=== PATIENT | female | born 1980 | race American Indian/Alaskan Native ===

== ENCOUNTER 2016-11-25 09:54 | Emergency (ER) | payer SELFPAY ==
[2016-11-25] MEDS ORDERED: MORPHINE IM ONE (13:38)
[2016-11-25] MEDS ORDERED: ZOFRAN ODT PO ONE (13:38)
[2016-11-25] MEDS ORDERED: CLEOCIN IM ONE (13:38)
[2016-11-25] MEDS ORDERED: MOTRIN PO ONE (13:38)
--- NOTE | 2016-11-25 14:06 | Emergency Department Report ---
ED ENT HPI - General Chief complaint: Dental/Oral Stated complaint: ABCSESS/SWOLLEN JAW/THROAT Time Seen by Provider: 11/25/16 13:23 Source: patient Mode of arrival: Ambulatory Limitations: No Limitations - History of Present Illness Initial comments: Pt states 5-6 months ago, her filling broke off. PT stats since that time, she has gotten intermittent toothaches. PT states she has had a toothache x 2 days. PT states that she woke up yesterday with mild facial swelling. PT states she took multiple NSAIDs (motrin, aleve, asa) but no improvement. PT states she woke up this morning and her swelling was worse. PT also c/o draining blister's to her gum. MD complaint: tooth pain Onset/Timin -: Gradual, days(s) 1 - pain Severity: severe Severity scale (0 -10): 9 Quality: stabbing Consistency: constant Improves with: none Worsens with: eating, movement, other (palpation) Context- Dental: poor dental care Associated Symptoms: fever (subjective), gum swelling. denies: sore throat, discharge from ear - Related Data Previous Rx's Medication Instructions Recorded Last Taken Type Acetaminophen/Codeine [Tylenol #3] 1 tab PO Q6H PRN #12 tab 11/25/16 Unknown Rx Chlorhexidine Mouthwash [Peridex] 15 ml MM BID 7 Days 11/25/16 Unknown Rx Clindamycin [Clindamycin CAP] 300 mg PO Q8H #30 cap 11/25/16 Unknown Rx Ibuprofen [Motrin] 600 mg PO Q8H PRN #15 tablet 11/25/16 Unknown Rx Allergies Allergy/AdvReac Type Severity Reaction Status Date / Time No Known Allergies Allergy Unverified 11/25/16 10:40 ED Dental HPI - General Chief complaint: Dental/Oral Stated complaint: ABCSESS/SWOLLEN JAW/THROAT Time Seen by Provider: 11/25/16 13:23 Source: patient Mode of arrival: Ambulatory Limitations: No Limitations - Related Data Previous Rx's Medication Instructions Recorded Last Taken Type Acetaminophen/Codeine [Tylenol #3] 1 tab PO Q6H PRN #12 tab 11/25/16 Unknown Rx Chlorhexidine Mouthwash [Peridex] 15 ml MM BID 7 Days 11/25/16 Unknown Rx Clindamycin [Clindamycin CAP] 300 mg PO Q8H #30 cap 11/25/16 Unknown Rx Ibuprofen [Motrin] 600 mg PO Q8H PRN #15 tablet 11/25/16 Unknown Rx Allergies Allergy/AdvReac Type Severity Reaction Status Date / Time No Known Allergies Allergy Unverified 11/25/16 10:40 ED Review of Systems ROS: Stated complaint: ABCSESS/SWOLLEN JAW/THROAT Other details as noted in HPI Comment: All other systems reviewed and negative Constitutional: fever. denies: chills Gastrointestinal: denies: abdominal pain, nausea, vomiting Skin: denies: change in color ED Past Medical Hx - Past Medical History Previous Medical History?: No - Surgical History Past Surgical History?: Yes Additional Surgical History: C section x3. hysterectomy - Social History Smoking Status: Current Every Day Smoker - Medications Home Medications: Home Medications Medication Instructions Recorded Confirmed Last Taken Type Acetaminophen/Codeine [Tylenol #3] 1 tab PO Q6H PRN #12 tab 11/25/16 Unknown Rx Chlorhexidine Mouthwash [Peridex] 15 ml MM BID 7 Days 11/25/16 Unknown Rx Clindamycin [Clindamycin CAP] 300 mg PO Q8H #30 cap 11/25/16 Unknown Rx Ibuprofen [Motrin] 600 mg PO Q8H PRN #15 tablet 11/25/16 Unknown Rx ED Physical Exam - General Limitations: No Limitations General appearance: alert, in no apparent distress - Head Head exam: Present: atraumatic, normocephalic, other (swelling to left mandible) - Eye Eye exam: Present: normal appearance, PERRL, EOMI. Absent: conjunctival injection - ENT ENT exam: Present: normal orophraynx, TM's normal bilaterally, normal external ear exam - Expanded ENT Exam Expanded Teeth exam: Present: dental caries, dental tenderness # (18), gingival enlargement, other (small draining apical abscess to tooth 18. no signs of [place]) Throat exam: Positive: normal inspection. Negative: tonsillar erythema - Neck Neck exam: Present: normal inspection, full ROM. Absent: tenderness, lymphadenopathy - Respiratory Respiratory exam: Present: normal lung sounds bilaterally. Absent: respiratory distress, wheezes, rales, rhonchi - Cardiovascular Cardiovascular Exam: Present: regular rate, normal rhythm, normal heart sounds - Extremities Exam Extremities exam: Present: normal inspection, full ROM - Back Exam Back exam: Present: normal inspection, full ROM. Absent: tenderness - Neurological Exam Neurological exam: Present: alert, oriented X3 - Psychiatric Psychiatric exam: Present: normal affect, normal mood - Skin Skin exam: Present: warm, dry, intact, normal color ED Course Vital Signs 11/25/16 10:38 Temperature 99.1 F Pulse Rate 87 Respiratory 16 Rate Blood Pressure 130/72 O2 Sat by Pulse 100 Oximetry - Reevaluation(s) Reevaluation #1: 11/25/16 14:07 pt aware of dx and plan of care. pt has no questions at this time - Pulse Oximetry Interpretation Digit-Finger Initial Pulse Oximetry Readin Actions Taken: none ED Medical Decision Making - Differential Diagnosis dental caries, toothache Critical Care Time: No Critical care attestation.: If time is entered above; I have spent that time in minutes in the direct care of this critically ill patient, excluding procedure time. ED Disposition Clinical Impression: Dental abscess Disposition: DC-01 TO HOME OR SELFCARE Is pt being admited?: No Does the pt Need Aspirin: No Condition: Stable Instructions: Dental Abscess (ED), Toothache (ED) Additional Instructions: No driving or alcohol after taking Tylenol #3 for pain finish all antibiotics follow up with dentist in the next 3-5 days return to ed if worsening swelling or concerns Prescriptions: Acetaminophen/Codeine [Tylenol #3] 1 tab PO Q6H PRN #12 tab PRN Reason: Pain , Severe (7-10) Chlorhexidine Mouthwash [Peridex] 15 ml MM BID 7 Days Clindamycin [Clindamycin CAP] 300 mg PO Q8H #30 cap Ibuprofen [Motrin] 600 mg PO Q8H PRN #15 tablet PRN Reason: Pain Referrals: PRIMARY CARE, [Primary Care Provider] - 3-5 Days BUD MOSLEY MD [Staff Physician] - 3-5 Days [facility] [Outside] - 3-5 Days [facility] [Outside] - 3-5 Days [facility] [Outside] - 3-5 Days Time of Disposition: 14:08
[2016-11-25 14:19] VITALS: BP 124/70
== END 2016-11-25 14:26 | disposition home or self-care (01) ==
LOC: ED 09:54
DX: K04.7 Periapical abscess without sinus (principal); F17.200 Nicotine dependence, unspecified, uncomplicated
CPT/HCPCS: 96372; 99282; J2270; Q0162

== ENCOUNTER 2017-05-21 15:01 | Emergency (ER) | payer SELFPAY ==
[2017-05-21 16:35] VITALS: BP 119/78
== END 2017-05-22 03:58 | disposition left against medical advice (07) ==
LOC: ED 15:01
DX: J02.9 Acute pharyngitis, unspecified (principal); Z53.21 Procedure and treatment not carried out due to patient leaving prior to being seen by health care provider
CPT/HCPCS: 87116; 87430

== ENCOUNTER 2017-09-09 12:07 | Emergency (ER) | payer SELFPAY ==
--- NOTE | 2017-09-09 13:34 | Emergency Department Report ---
Chief Complaint: Urogenital-Female Stated Complaint: PELVIC PAIN Time Seen by Provider: 09/09/17 13:29 - HPI History of Present Illness: 37-year-old female presents to the emergency department with complaint of some lower pelvic discomfort and some recent vaginal bleeding. The patient had heavy vaginal bleeding yesterday. However the patient had a total hysterectomy except for 1 ovary. Today the bleeding mostly occurs when she wipes herself after urination. She has not taken anything for the symptoms and presentation. - ROS Review of Systems: Positive for pelvic pain, vaginal bleeding Negative for dysuria, vaginal discharge, fever, nausea or vomiting - Exam Vital Signs: Vital Signs 09/09/17 12:11 Temperature 98.4 F Pulse Rate 101 H Respiratory 18 Rate Blood Pressure 133/94 O2 Sat by Pulse 100 Oximetry Physical Exam: Patient is awake and alert in no acute distress. Heart and lungs are normal to auscultation MSE screening note: Focused history and physical exam performed. Due to findings the following was ordered: I will order a CBC and urinalysis. No test necessary as the patient has a total hysterectomy. Potentially she will get a pelvic examination or ultrasound to look at her one remaining ovary. ED Disposition for MSE Condition: Stable Referrals: PRIMARY CARE, [Primary Care Provider] - 3-5 Days
[2017-09-09 14:28] LABS: Bilirubin,Urine NEG (Negative); Blood,Urine SM (Negative); Color,Urine Yellow (Yellow); Mucus,Urine FEW /HPF; Protein,Urine <15 mg/dL mg/dL (Negative); Urobilinogen,Urine < 2.0 mg/dL (<2.0)
[2017-09-09 15:54] LABS: Basophils % (Auto) 0.7 % (0.0-1.8); Eosinophils # (Auto) 0.1 K/mm3 (0.0-0.4); Eosinophils % (Auto) 2.5 % (0.0-4.3); Hematocrit 37.9 % (30.3-42.9); Hemoglobin 12.4 gm/dl (10.1-14.3); Lymphocytes # (Auto) 1.9 K/mm3 (1.2-5.4); Lymphocytes % (Auto) 32.9 % (13.4-35.0); Mean Corpuscular HGB Conc 33 % (30-34); Mean Corpuscular Hemoglobin 27 pg (28-32); Mean Corpuscular Volume 83 fl (79-97); Monocytes # (Auto) 0.4 K/mm3 (0.0-0.8); Monocytes % (Auto) 6.2 % (0.0-7.3); Platelet Count 246 K/mm3 (140-440); Red Blood Count 4.56 M/mm3 (3.65-5.03); Red Cell Distribution Width 14.5 % (13.2-15.2)
--- NOTE | 2017-09-09 17:15 | Emergency Department Report ---
ED Female HPI - General Chief complaint: Urogenital-Female Stated complaint: PELVIC PAIN Time Seen by Provider: 09/09/17 13:29 Source: patient Mode of arrival: Ambulatory Limitations: No Limitations - History of Present Illness Initial comments: 37-year-old female presents to the emergency department with complaint of some lower pelvic discomfort and some recent vaginal bleeding. The patient had heavy vaginal bleeding yesterday. However the patient had a total hysterectomy except for 1 ovary. Today the bleeding mostly occurs when she wipes herself after urination. She has not taken anything for the symptoms and presentation. Patient is currently not having any pain. Pain is crampy when she feels pain. Nothing makes it better nothing makes it worse.Urinary burning, frequency or urgency denies any vaginal discharge. MD Complaint: vaginal bleeding, pelvic pain Onset/Timin -: days(s) Location: suprapubic Radiation: non-radiating Severity scale (0 -10): 0 Quality: cramping Consistency: intermittent Improves with: none Worsens with: none Are you Now?: No Associated Symptoms: vaginal bleeding, abdominal pain. denies: vaginal discharge, nausea/vomiting, fever/chills, headaches, loss of appetite, dysuria, hematuria, rash, seizure, shortness of breath, syncope, weakness - Related Data Sexually active: Yes Previous Rx's Medication Instructions Recorded Last Taken Type Acetaminophen/Codeine [Tylenol #3] 1 tab PO Q6H PRN #12 tab 11/25/16 Unknown Rx Chlorhexidine Mouthwash [Peridex] 15 ml MM BID 7 Days bottle 11/25/16 Unknown Rx Clindamycin [Clindamycin CAP] 300 mg PO Q8H #30 cap 11/25/16 Unknown Rx Ibuprofen [Motrin 600 MG tab] 600 mg PO Q8H PRN #15 tablet 09/09/17 Unknown Rx metroNIDAZOLE [Flagyl] 500 mg PO Q12HR 7 Days #14 tab 09/09/17 Unknown Rx Allergies Allergy/AdvReac Type Severity Reaction Status Date / Time No Known Allergies Allergy Unverified 11/25/16 10:40 ED Review of Systems ROS: Stated complaint: PELVIC PAIN Other details as noted in HPI Comment: All other systems reviewed and negative Constitutional: no symptoms reported Eyes: denies: eye pain, eye discharge, vision change ENT: denies: throat pain, congestion Respiratory: no symptoms reported Cardiovascular: denies: chest pain, palpitations, dyspnea on exertion, edema, syncope, paroxysmal nocturnal dyspnea Gastrointestinal: abdominal pain. denies: nausea, vomiting, diarrhea, constipation, hematemesis, melena, hematochezia Genitourinary: other (abnormal vaginal bleeding and the patient that her). denies: urgency, dysuria, frequency, hematuria, discharge Musculoskeletal: denies: back pain, joint swelling, arthralgia, myalgia Skin: denies: rash Neurological: denies: headache, numbness, paresthesias, confusion, abnormal gait , vertigo ED Past Medical Hx - Past Medical History Previous Medical History?: Yes Additional medical history: hysterectomy, c-sectionx3, laparoscopy - Surgical History Past Surgical History?: Yes Additional Surgical History: C section x3. hysterectomy - Family History Family history: no significant - Social History Smoking Status: Current Every Day Smoker Substance Use Type: None - Medications Home Medications: Home Medications Medication Instructions Recorded Confirmed Last Taken Type Acetaminophen/Codeine [Tylenol #3] 1 tab PO Q6H PRN #12 tab 11/25/16 Unknown Rx Chlorhexidine Mouthwash [Peridex] 15 ml MM BID 7 Days bottle 11/25/16 Unknown Rx Clindamycin [Clindamycin CAP] 300 mg PO Q8H #30 cap 11/25/16 Unknown Rx Ibuprofen [Motrin 600 MG tab] 600 mg PO Q8H PRN #15 tablet 09/09/17 Unknown Rx metroNIDAZOLE [Flagyl] 500 mg PO Q12HR 7 Days #14 tab 09/09/17 Unknown Rx ED Physical Exam - General Limitations: No Limitations General appearance: alert, in no apparent distress - Head Head exam: Present: atraumatic, normocephalic, normal inspection - Eye Eye exam: Present: normal appearance, PERRL, EOMI Pupils: Present: normal accommodation - ENT ENT exam: Present: normal exam, normal orophraynx, mucous membranes moist - Neck Neck exam: Present: normal inspection, full ROM. Absent: tenderness - Respiratory Respiratory exam: Present: normal lung sounds bilaterally. Absent: respiratory distress, chest wall tenderness - Cardiovascular Cardiovascular Exam: Present: normal rhythm, tachycardia, normal heart sounds - GI/Abdominal GI/Abdominal exam: Present: soft, normal bowel sounds. Absent: distended, tenderness, guarding, rebound, rigid, organomegaly, mass, bruit, pulsatile mass , hernia - External exam: Present: normal external exam. Absent: erythema, swelling, lesions, lacerations, ecchymosis, bleeding Speculum exam: Present: vaginal discharge, other (cervical Present). Absent: erythema, tissue, laceration Bi-manual exam: Present: other (patient with complete hysterectomy therefore she does not have cervix or adnexa. She says she has right ovary but none was felt with bimanual exam.). Absent: adnexal tenderness, adnexal mass - Extremities Exam Extremities exam: Present: normal inspection, full ROM, normal capillary refill , other (no clubbing, cyanosis or edema. +2 pulses to all extremities and no neurovascular compromise). Absent: tenderness, pedal edema, joint swelling, calf tenderness - Back Exam Back exam: Present: normal inspection, full ROM, other (ambulates without any difficulties). Absent: tenderness, CVA tenderness (R), CVA tenderness (L), muscle spasm, paraspinal tenderness, vertebral tenderness, rash noted - Neurological Exam Neurological exam: Present: alert, oriented X3, normal gait - Psychiatric Psychiatric exam: Present: normal affect, normal mood - Skin Skin exam: Present: warm, dry, intact, normal color. Absent: rash ED Course Vital Signs 09/09/17 09/09/17 12:11 18:28 Temperature 98.4 F Pulse Rate 101 H 68 Respiratory 18 18 Rate Blood Pressure 133/94 Blood Pressure 124/82 [Right] O2 Sat by Pulse 100 Oximetry - Reevaluation(s) Reevaluation #1: 09/09/17 21:07 She is stable throughout ED stay ED Medical Decision Making - Lab Data Result diagrams: 09/09/17 15:36 Lab Results 09/09/17 09/09/17 Range/Units 15:36 Unknown WBC 5.9 (4.5-11.0) K/mm3 RBC 4.56 (3.65-5.03) M/mm3 Hgb 12.4 (10.1-14.3) gm/dl Hct 37.9 (30.3-42.9) % MCV 83 (79-97) fl MCH 27 L (28-32) pg MCHC 33 (30-34) % RDW 14.5 (13.2-15.2) % Plt Count 246 (140-440) K/mm3 Lymph % (Auto) 32.9 (13.4-35.0) % Mccormick % (Auto) 6.2 (0.0-7.3) % Eos % (Auto) 2.5 (0.0-4.3) % Baso % (Auto) 0.7 (0.0-1.8) % Lymph # 1.9 (1.2-5.4) K/mm3 Mccormick # 0.4 (0.0-0.8) K/mm3 Eos # 0.1 (0.0-0.4) K/mm3 Baso # 0.0 (0.0-0.1) K/mm3 Seg Neutrophils % 57.7 (40.0-70.0) % Seg Neutrophils # 3.4 (1.8-7.7) K/mm3 Urine Color Yellow (Yellow) Urine Turbidity Clear (Clear) Urine pH 6.0 (5.0-7.0) Ur Specific [place] 1.012 (1.003-1.030) Urine Protein <15 mg/dl (Negative) mg/dL Urine Glucose (UA) Neg (Negative) mg/dL Urine Ketones Neg (Negative) mg/dL Urine Blood Sm (Negative) Urine Nitrite Neg (Negative) Urine Bilirubin Neg (Negative) Urine Urobilinogen < 2.0 (<2.0) mg/dL Ur Leukocyte Esterase Neg (Negative) Urine WBC (Auto) 1.0 (0.0-6.0) /HPF Urine RBC (Auto) 1.0 (0.0-6.0) /HPF U Epithel Cells (Auto) 2.0 (0-13.0) /HPF Urine Mucus Few /HPF Wet prep with greater than 20% clue cell, no trichomoniasis or yeast. Gonorrhea and chlamydia pending - Radiology Data Radiology results: report reviewed Ultrasound transvaginal and transabdominal reveal patient with uterus and ovaries were not visualized. Patient did say she had left oophorectomy but she has a right ovary still but - Medical Decision Making ED course: She complained of pelvic pain and vaginal bleeding that started yesterday. Patient reports partial hysterectomy to include removal of left ovary and her fallopian tubes and said that she has her right ovary in. Abdominal exam is normal. Ultrasound transabdominal and transvaginal revealed patient with absent uterus, ovaries. I discussed this with patient and patient said they told her she had her right ovary in. I told her that radiologist report revealed that they did not see any ovaries. I also discussed with her that she has abnormal vaginal bleeding and and she will need to follow up with ACCOUNTING CLERK and she does not have one she can follow up at some outside [facility]. I also discussed with her that she needs to follow-up with urologist. Patient was given referral to both. Wet prep was done and patient found to have bacterial vaginosis and will be treated. Gonorrhea and chlamydia pending. Patient and labs stable. Discharged home a prescription for Flagyl and ibuprofen. Critical care attestation.: If time is entered above; I have spent that time in minutes in the direct care of this critically ill patient, excluding procedure time. ED Disposition Clinical Impression: Bacterial vaginal infection, Vaginal bleeding, Pelvic pain, Vaginal bleeding, abnormal Disposition: TO HOME OR SELFCARE Is pt being admited?: No Does the pt Need Aspirin: No Condition: Stable Instructions: Bacterial Vaginosis (ED), Abdominal Pain (ED) Additional Instructions: Please follow up with ACCOUNTING CLERK regarding in bacterial vaginosis, you'll need to have Pap smear although you do not have the uterus is still need to have yearly exam until your ACCOUNTING CLERK tells you that you don't need to have exam anymore. States he do not have ACCOUNTING CLERK he can follow up at [facility]. Call on Monday to schedule an appointment for ACCOUNTING CLERK visit. Flagyl for bacterial vaginosis bulky's do not drink alcohol while taking this medication. Increase her fluid intake You have abnormal vaginal bleeding in and will need to follow up with ACCOUNTING CLERK and probably urologists. Prescriptions: Ibuprofen [Motrin 600 MG tab] 600 mg PO Q8H PRN #15 tablet PRN Reason: Pain metroNIDAZOLE [Flagyl] 500 mg PO Q12HR 7 Days #14 tab Referrals: PRIMARY CAREMD [Primary Care Provider] - 09/11/[address] [facility] [Outside] - 09/11/17 (This clinic has primary care and ACCOUNTING CLERK clinics. Please call on Monday to schedule an appointment for ACCOUNTING CLERK visit for abnormal vaginal bleeding) [facility] [Provider Group] - 2-3 Days
--- NOTE | 2017-09-09 18:25 | Ultrasound Report ---
FINAL REPORT PROCEDURE: US TRANSVAGINAL and transabdominal TECHNIQUE: Transabdominal and transvaginal images of the pelvis were obtained HISTORY: bleeding vaginal.abd pain. Patient is status post hysterectomy COMPARISON: No prior studies are available for comparison. FINDINGS: The uterus and ovaries were not visualized. No obvious pelvic mass or free fluid are seen. Vaginal cuff is grossly unremarkable in appearance. IMPRESSION: Uterus and ovaries were not visualized. PROCEDURE: TECHNIQUE: HISTORY: COMPARISON: FINDINGS: IMPRESSION:
[2017-09-09 18:29] VITALS: BP 124/82
== END 2017-09-09 19:18 | disposition home or self-care (01) ==
LOC: ED 12:07
DX: N76.0 Acute vaginitis (principal); N93.9 Abnormal uterine and vaginal bleeding, unspecified; Z90.710 Acquired absence of both cervix and uterus
CPT/HCPCS: 36415; 76830; 76856; 81001; 85025; 87210; 87591